=== PATIENT | female | born 1960 | race Caucasian/White ===

== ENCOUNTER 2020-07-17 09:45 | Outpatient (REF) | payer OTHER, SELFPAY ==
[2020-07-17 11:37] LABS: Anion Gap 14 (12-20); C Reactive Protein 0.19 mg/dL (< or = 0.50); Carbon Dioxide 24 mmol/L (22-29); Chloride 105 mmol/L (96-108); Potassium 4.4 mmol/l (3.3-5.1); Sodium 139 mmol/L (135-145)
[2020-07-17 11:41] LABS: Erythrocyte Sedimentation Rate 10 MM/HR (0-20)
[2020-07-17 12:28] LABS: T4 Thyroxine 8.3 ug/dL (4.5-12.0)
[2020-07-19 14:22] LABS: Anti Nuclear Antibody Screen NEGATIVE (NEGATIVE)
[2020-07-19 14:41] LABS: IgA 203 mg/dL (47-310); IgG 864 mg/dL (600-1640); IgM 68 mg/dL (50-300)
== END 2020-07-17 09:46 | disposition home or self-care (01) ==
LOC: HO.LAB 09:45
PROVIDERS: Visit Provider Psychiatry & Neurology Neurology
DX: M79.7 Fibromyalgia (principal)
CPT/HCPCS: 36415; 80051; 82550; 82784; 84436; 84443; 85652; 86038; 86039; 86140; 86334; 86618

== ENCOUNTER 2020-11-20 13:25 | Outpatient (REF) | payer OTHER, SELFPAY ==
[2020-11-20 14:33] LABS: MANUAL DIFF FLAG NO
[2020-11-20 14:37] LABS: Basophils Percent Auto 0.7 % (0-2); Eosinophils Absolute Auto 0.2 X10*3/uL (0.0-0.4); Eosinophils Percent Auto 5.1 % (0-4); Hematocrit 38.4 % (37-47); Hemoglobin 12.5 g/dl (12.0-16.0); Imm Gran Abs Auto 0.02 X10*3/uL (0.00-0.03); Imm Gran Pct Auto 0.5 % (0.0-0.4); Lymphocytes Absolute Auto 1.4 X10*3/uL (1.2-4.9); Lymphocytes Percent Auto 32.6 % (20-40); Mean Corpuscular HGB Conc 32.6 g/dl (31.0-35.0); Mean Corpuscular Hemoglobin 30.9 pg (27.0-33.0); Mean Corpuscular Volume 94.8 fL (80-98); Mean Platelet Volume 11.2 fL (9.4-12.3); Monocytes Absolute Auto 0.2 X10*3/uL (0.1-1.2); Monocytes Percent Auto 4.2 % (2-11); Neutrophils Absolute Auto 2.5 X10*3/uL (2.0-8.3); Neutrophils Percent Auto 56.9 % (45-73); Platelet Count 234 X10*3/uL (160-400); Red Blood Count 4.05 X10*6/uL (4.20-5.50); Red Cell Distribution Width 13.2 % (11.0-16.0); White Blood Count 4.3 X10*3/uL (4.8-10.8)
[2020-11-20 15:25] LABS: Erythrocyte Sedimentation Rate 8 MM/HR (0-20)
[2020-11-21 09:21] LABS: Lyme Abs Screen <0.90 index
== END 2020-11-20 13:26 | disposition home or self-care (01) ==
LOC: HO.LAB 13:25
PROVIDERS: Visit Provider Psychiatry & Neurology Neurology
DX: M79.7 Fibromyalgia (principal)
CPT/HCPCS: 36415; 85025; 85652; 86618

== ENCOUNTER 2021-06-24 12:06 | Outpatient (REF) | payer OTHER, SELFPAY ==
[2021-06-24 12:24] LABS: MANUAL DIFF FLAG NO
[2021-06-24 13:04] LABS: Eosinophils Absolute Auto 0.1 X10*3/uL (0.0-0.4); Eosinophils Percent Auto 3.1 % (0-4); Hematocrit 37.9 % (37-47); Hemoglobin 12.3 g/dl (12.0-16.0); Imm Gran Abs Auto 0.01 X10*3/uL (0.00-0.03); Imm Gran Pct Auto 0.3 % (0.0-0.4); Lymphocytes Percent Auto 25.3 % (20-40); Mean Corpuscular HGB Conc 32.5 g/dl (31.0-35.0); Mean Corpuscular Hemoglobin 30.3 pg (27.0-33.0); Mean Corpuscular Volume 93.3 fL (80-98); Mean Platelet Volume 11.1 fL (9.4-12.3); Monocytes Absolute Auto 0.2 X10*3/uL (0.1-1.2); Monocytes Percent Auto 5.9 % (2-11); Neutrophils Absolute Auto 2.5 X10*3/uL (2.0-8.3); Neutrophils Percent Auto 64.4 % (45-73); Platelet Count 216 X10*3/uL (160-400); Red Blood Count 4.06 X10*6/uL (4.20-5.50); Red Cell Distribution Width 12.9 % (11.0-16.0); White Blood Count 3.9 X10*3/uL (4.8-10.8)
[2021-06-24 13:20] LABS: C Reactive Protein 0.12 mg/dL (< or = 0.50)
[2021-06-24 13:41] LABS: Thyroid Stimulating Hormone 1.77 uIU/mL (0.32-4.0)
[2021-06-24 14:02] LABS: Erythrocyte Sedimentation Rate 7 MM/HR (0-20)
[2021-06-25 08:37] LABS: Lyme Abs Screen <0.90 index
== END 2021-06-24 12:07 | disposition home or self-care (01) ==
LOC: HO.LAB 12:06
PROVIDERS: Visit Provider Psychiatry & Neurology Neurology
DX: M79.7 Fibromyalgia (principal)
CPT/HCPCS: 36415; 82550; 84443; 85025; 85652; 86140; 86617; 86618

== ENCOUNTER 2021-09-05 13:13 | Outpatient (REF) | payer OTHER, SELFPAY ==
[2021-09-06 01:48] LABS: CT PCR NOT DETECTED (Not Detect.); NG PCR NOT DETECTED (Not Detect.)
[2021-09-11 08:51] LABS: HPV mRNA E6/E7 rflx Not Detected (Not Detected)
== END 2021-09-05 13:14 | disposition home or self-care (01) ==
LOC: HO.LAB 13:13
PROVIDERS: Visit Provider Obstetrics & Gynecology
DX: Z01.411 Encounter for gynecological examination (general) (routine) with abnormal findings (principal); Z11.51 Encounter for screening for human papillomavirus (HPV); R10.2 Pelvic and perineal pain
CPT/HCPCS: 81003; 87491; 87591; 87624; 88142

== ENCOUNTER 2021-09-18 12:49 | Outpatient (REF) | payer OTHER, SELFPAY ==
--- NOTE | ~2021-09-18 | US_ITS ---
EXAMINATION: US PELVIS CLINICAL INFORMATION: Lower abdominal and pelvic pain. Postmenopausal. COMPARISON: No similar priors. TECHNIQUE: Ultrasound of the pelvis is performed using both transabdominal and transvaginal transducers along. Transvaginal imaging is performed due to inadequate visualization transabdominally. FINDINGS: Uterus: The uterus is retroverted and retroflexed and measures 6.8 x 3.6 x 4.3 cm. The myometrium is heterogeneous and there is a 2.2 cm intramural fibroid in the left upper uterine body. The double wall endometrial thickness is 3 mm. Subcentimeter nabothian cysts overlie the pelvis. Adnexa: The right ovary is normal in morphology measuring 2.6 x 1.8 x 1.7 cm (volume of 4 mL). There is preserved flow to the right ovary on color. The left ovary was not visualized. No free fluid. US/US pelvic and transvaginal IMPRESSION: 2.2 cm uterine fibroid. The myometrium is heterogeneous which could be related with adenomyosis in the appropriate clinical context. If indicated, correlate with a pelvic MR. Normal sonographic appearance of the right ovary. The left ovary was not visualized.
== END 2021-09-18 12:50 | disposition home or self-care (01) ==
LOC: HO.HMGCX 12:49
PROVIDERS: Visit Provider Obstetrics & Gynecology
DX: R10.2 Pelvic and perineal pain (principal)
CPT/HCPCS: 76830; 76856

== ENCOUNTER → 2021-10-02 10:09 | Outpatient (BNVA) | payer OTHER, SELFPAY | PROVIDERS: Visit Provider Obstetrics & Gynecology ==

== ENCOUNTER → 2021-10-22 09:11 | Outpatient (BNVA) | payer OTHER, SELFPAY | PROVIDERS: Visit Provider Obstetrics & Gynecology ==

== ENCOUNTER 2022-01-03 15:23 | Outpatient (REF) | payer OTHER, SELFPAY ==
--- NOTE | ~2022-01-03 | US_ITS ---
EXAMINATION: US PELVIS CLINICAL INFORMATION: Pelvic and perineal pain COMPARISON: Previous pelvic ultrasound September 2021 TECHNIQUE: Ultrasound of the pelvis is performed using both transabdominal and transvaginal transducers along with Doppler. Transvaginal imaging is performed due to inadequate visualization transabdominally. FINDINGS: The uterus is retroverted and measures 6.7 x 3 x 4.3 cm in dimension. Uterine echotexture is heterogeneous. There are small cysts in the uterus near the endometrium. There are 2 focal uterine lesions measuring 1.8 x 1.1 x 1.2 cm in the anterior uterine body and 1.3 x 1.2 x 1.4 cm. Endometrial thickness is normal measuring 0.2 cm. There are nabothian cysts in the cervix. The ovaries are normal-appearing. The right ovary measures 1.6 x 1.1 x 0.9 cm and the left ovary measures 2.2 x 1.1 x 1.7 cm. There is a small amount of fluid in the pelvis. US/US pelvic and transvaginal IMPRESSION: Heterogeneous uterus questionable for adenomyomatosis. 2 focal uterine lesions questionable for small fibroids versus adenomyomas. Again this could be further evaluated with pelvic MRI clinically indicated. Normal appearing ovaries.
== END 2022-01-03 15:24 | disposition home or self-care (01) ==
LOC: HO.US 15:23
PROVIDERS: Visit Provider Obstetrics & Gynecology
DX: R10.2 Pelvic and perineal pain (principal); D21.9 Benign neoplasm of connective and other soft tissue, unspecified
CPT/HCPCS: 76830; 76856

== ENCOUNTER → 2022-01-21 11:51 | Outpatient (BNVA) | payer OTHER, SELFPAY | PROVIDERS: Visit Provider Obstetrics & Gynecology | DX: D21.9 Benign neoplasm of connective and other soft tissue, unspecified (principal) ==

== ENCOUNTER 2022-08-04 10:55 | Outpatient (REF) | payer BC, SELFPAY ==
--- NOTE | ~2022-08-04 | US_ITS ---
EXAMINATION: US PELVIS CLINICAL INFORMATION: Benign neoplasm connective tissue. COMPARISON: 01/03/2022, 09/18/2021 TECHNIQUE: Ultrasound of the pelvis is performed using both transabdominal and transvaginal transducers along with Doppler. Transvaginal imaging is performed due to inadequate visualization transabdominally. FINDINGS: The uterus is heterogeneous and measures 7.9 x 4.0 x 4.6 cm, volume 76.1 mL. Uterus is retropositioned. Endometrium is linear with thickness of 0.1 cm. No significant free fluid. Bilateral ovaries are unremarkable. Right ovary measures 2.3 x 1.1 x 1.4 cm, volume 1.9 mL. Left ovary measures 2.3 x 1.1 x 1.5 cm, volume 2.0 mL. Small nabothian cysts. A 1.2 x 1.1 x 1.1 cm fibroid is redemonstrated. Previously seen 1.4 cm fibroid not visualized today. Uterine heterogeneity raises the possibility of adenomyomatosis as previously noted. US/US pelvic and transvaginal IMPRESSION: 1. Heterogeneous uterus again raises the possibility of adenomyomatosis as previously noted. Single focal uterine lesion represent a small fibroid versus adenomyoma. Again MRI of the pelvis should be considered for further evaluation. 2. Bilateral ovaries are unremarkable.
== END 2022-08-04 10:56 | disposition home or self-care (01) ==
LOC: HO.US 10:55
PROVIDERS: Visit Provider Obstetrics & Gynecology
DX: D21.9 Benign neoplasm of connective and other soft tissue, unspecified (principal)
CPT/HCPCS: 76830; 76856

== ENCOUNTER 2022-11-20 12:02 | Outpatient (REF) | payer BC, SELFPAY ==
--- NOTE | ~2022-11-20 | MM_ITS ---
EXAMINATION: MM SCREENING DIGITAL BREAST TOMOSYNTHESIS, BILATERAL CLINICAL INFORMATION: Screening. Asymptomatic. The lifetime risk of breast cancer based on the Tyrer-Cuzick Model is 6%. COMPARISON: Outside 2-D mammography ([facility]): 08/13/2018, 12/05/2016, 09/27/2014 TECHNIQUE: Digital breast tomosynthesis is performed in both the craniocaudal and mediolateral oblique views along with computer-aided detection (CAD). Synthesized 2D images are generated from the tomosynthesis. FINDINGS: The breasts are heterogeneously dense, which may obscure small masses (ACR BI-RADS breast composition Category c). There are no significant masses, abnormal calcifications, or other abnormalities. Breast tissue composition borders on average fibroglandular. There are interval new bilateral punctate calcifications, likely benign. Patient will be recalled in order to obtain magnification views to fully characterize. Right breast has focal parenchymal asymmetry mid upper outer quadrant, likely chronic. Additional imaging will be requested to exclude developing density or architectural change. Left breast shows no significant mass or developing density or architectural abnormality. The bilateral axilla and skin contours are unremarkable. MM/MM tomosynthesis screening BI IMPRESSION: -New bilateral punctate calcifications. -Focal parenchymal asymmetry mid upper outer right breast, likely chronic. ASSESSMENT: BI-RADS 0: Incomplete - Need Additional Imaging Evaluation RECOMMENDATION: 1. Additional views: bilateral magnification CC; bilateral ML; 3D rolled right CC. 2. Targeted ultrasound if warranted after review of the additional views. 3. Radiology department staff will contact the patient for additional imaging. This patient's information was entered into a reminder system with a target due date for their next mammogram.
== END 2022-11-20 12:03 | disposition home or self-care (01) ==
LOC: HO.MAMMO 12:02
PROVIDERS: PCP Internal Medicine; Visit Provider Obstetrics & Gynecology
DX: Z12.31 Encounter for screening mammogram for malignant neoplasm of breast (principal)
CPT/HCPCS: 77063; 77067

== ENCOUNTER 2022-11-28 10:48 | Outpatient (REF) | payer BC, SELFPAY ==
--- NOTE | ~2022-11-28 | MM_ITS ---
EXAMINATION: MM DIAGNOSTIC DIGITAL BREAST TOMOSYNTHESIS, BILATERAL US BREAST, TARGETED, RIGHT CLINICAL INFORMATION: Density upper outer aspect of the right breast. Bilateral calcifications. The lifetime risk of breast cancer based on the Tyrer-Cuzick Model is 6.0%. COMPARISON: Mammography: 11/20/2022 and studies dating back to 09/27/2014. TECHNIQUE: Right digital breast tomosynthesis is performed in spot compression view and craniocaudal projection as well as rolled craniocaudal views for question mass. Synthesized 2D images are generated from the tomosynthesis. Spot magnification views of both breast in craniocaudal and 90 degree mediolateral views also performed for bilateral developing calcifications. FINDINGS: MAMMOGRAM: The breasts are heterogeneously dense, which may obscure small masses (ACR BI-RADS breast composition Category c). Compression and rolled views of the right breast appear to give an appearance similar to previous older studies of the density within the upper outer aspect of the right breast. There has been development of multiplicity and bilaterality of calcifications which appear punctate and majority rounded on craniocaudal view and with some of them change in configuration with the appearance of [id number]. ULTRASOUND: Targeted ultrasound evaluation to the upper outer aspect of the right breast demonstrates a few simple and complex cysts with structures having distal sound enhancement and no distal sound shadowing. MM/MM tomosynthesis diagnostic BI IMPRESSION: Density upper outer aspect of the right breast appears to have represented superimposition of fibroglandular tissue with similar appearance to prior studies on rolled views. Multiplicity and bilaterality of calcifications with some calcifications change in configuration between craniocaudal and 90 degree mediolateral views to suggest [id number]. Not all of the calcifications change configuration. ASSESSMENT: BI-RADS 3: Probably Benign RECOMMENDATION: Diagnostic mammography in 6 months. Recommend bilateral diagnostic mammogram in 6 months to include magnification views to ensure stability of above findings. This patient's information was entered into a reminder system with a target due date for their next mammogram. Results are discussed with the patient at time of visit.
== END 2022-11-28 10:49 | disposition home or self-care (01) ==
LOC: HO.MAMMO 10:48
PROVIDERS: Visit Provider Obstetrics & Gynecology
DX: R92.1 Mammographic calcification found on diagnostic imaging of breast (principal); R92.2 Inconclusive mammogram
CPT/HCPCS: 76642; 77062; 77066

== ENCOUNTER → 2023-02-04 12:27 | Outpatient (BNVA) | payer BC, SELFPAY | PROVIDERS: PCP Internal Medicine; Visit Provider Obstetrics & Gynecology ==

== ENCOUNTER 2023-06-03 12:11 | Outpatient (REF) | payer BC, SELFPAY ==
--- NOTE | ~2023-06-03 | MM_ITS ---
EXAMINATION: MM DIAGNOSTIC DIGITAL BREAST TOMOSYNTHESIS, BILATERAL CLINICAL INFORMATION: 6 month Follow-up bilateral calcifications; 6 month follow-up density upper outer aspect right breast. COMPARISON: Mammography: 11/28/2022 and studies dating back to 09/27/2014. Right breast ultrasound dated 11/28/2022, which showed no correlate to the right upper quadrant density. TECHNIQUE: Digital breast tomosynthesis is performed in both the craniocaudal and mediolateral oblique views along with computer-aided detection (CAD). Synthesized 2D images are generated from the tomosynthesis. In addition to standard views, 2-D spot magnification right CC, right MLO, left CC, and left MLO projections were obtained. FINDINGS: The breasts are heterogeneously dense, which may obscure small masses (ACR BI-RADS breast composition Category c). There are numerous groups of bilateral calcifications, with almost all groups demonstrating layering on 90 degree lateral projections, suggesting majority are most likely manufacturer's service representative of milk of calcium. These are probably benign findings, and 6 month follow-up recommended to ensure stability. The right upper slightly lateral asymmetry is also again less prominent on today's examination, and has the appearance of normal overlapping fibroglandular tissue, with a similar appearance now as compared to several priors. This finding pains probably benign. Breast parenchyma is very dense, and fibrocystic, with numerous circumscribed small oval masses throughout both breasts consistent with waxing and waning cysts. No dominant mass, no aggressive change in calcifications, and no areas of persistent architectural distortion in either breast. Overall, no significant interval change in the parenchymal pattern remains of either breast. MM/MM tomosynthesis diagnostic BI IMPRESSION: There are no significant changes from prior study. Probably benign bilateral extensive calcifications, likely related to milk of calcium. Six-month interval follow-up diagnostic magnification views recommended of both breasts. It is recommended the ML 90 degree magnification views remain in compression for 2 minutes to maximize layering. Probably benign focal asymmetry in the upper outer right breast, most likely related to normal overlapping dense fibroglandular tissues. This can be re-evaluated in 6 months at the time of bilateral screening. Stable extremely fibrocystic heterogeneously dense parenchyma in both breasts, with waxing and waning cysts. ASSESSMENT: BI-RADS BI-RADS 3 - Probably benign finding(s) - 6 month follow-up suggested RECOMMENDATION: 6 Month F/U Results were provided to the patient at time of visit by the technologist. This patient's information was entered into a reminder system with a target due date for their next mammogram.
== END 2023-06-03 12:12 | disposition home or self-care (01) ==
LOC: HO.MAMMO 12:11
PROVIDERS: PCP Internal Medicine; Visit Provider Obstetrics & Gynecology
DX: R92.1 Mammographic calcification found on diagnostic imaging of breast (principal)
CPT/HCPCS: 77062; 77066

== ENCOUNTER → 2023-06-03 14:30 | Outpatient (BNV) | payer BC, SELFPAY | PROVIDERS: PCP Internal Medicine; Visit Provider Radiology Diagnostic Radiology | DX: R92.1 Mammographic calcification found on diagnostic imaging of breast (principal) | CPT/HCPCS: 77062; 77066 ==

== ENCOUNTER 2023-12-07 10:52 | Outpatient (REF) | payer BC, SELFPAY ==
--- NOTE | ~2023-12-07 | MM_ITS ---
EXAMINATION: MM DIAGNOSTIC DIGITAL BREAST TOMOSYNTHESIS, BILATERAL CLINICAL INFORMATION: 6 month Follow-up bilateral calcifications. This will be for 1 year of stability. Bilateral screening. COMPARISON: Mammography: 11/28/2022 and studies dating back to 09/27/2014. Right breast ultrasound dated 11/28/2022, which showed no correlate to the right upper quadrant density. TECHNIQUE: Digital breast tomosynthesis is performed in both the craniocaudal and mediolateral oblique views along with computer-aided detection (CAD). Synthesized 2D images are generated from the tomosynthesis. In addition to standard views, 2-D spot magnification right CC, right MLO, left CC, and left MLO projections were obtained. FINDINGS: The breasts are heterogeneously dense, which may obscure small masses (ACR BI-RADS breast composition Category c). There are numerous groups of bilateral calcifications, with almost all groups demonstrating layering on 90 degree lateral projections, suggesting majority are most likely sales representative jewelry of milk of calcium. These remain probably benign findings, and 1 year follow-up recommended to ensure stability. The right upper slightly lateral asymmetry is also again less prominent on today's examination, and has the appearance of normal overlapping fibroglandular tissue, with a similar appearance now as compared to several priors. This finding is benign. No further follow-up. Breast parenchyma is very dense, and fibrocystic, with numerous circumscribed small oval masses throughout both breasts consistent with waxing and waning cysts. No dominant mass, no aggressive change in calcifications, and no areas of persistent architectural distortion in either breast. Overall, no significant interval change in the parenchymal pattern remains of either breast. MM/MM tomosynthesis diagnostic BI IMPRESSION: There are no significant changes from prior study. Probably benign bilateral extensive calcifications, likely related to milk of calcium. 1 year interval follow-up diagnostic magnification views recommended of both breasts, to include standard magnification views when the patient is due for bilateral screening. It is recommended the ML 90 degree magnification views remain in compression for 2 minutes to maximize layering. Stable extremely fibrocystic heterogeneously dense parenchyma in both breasts, with waxing and waning cysts. ASSESSMENT: BI-RADS BI-RADS 3 - Probably benign finding(s) - 12 month follow-up suggested RECOMMENDATION: 12 month diagnostic follow up Results were provided to the patient at time of visit by the technologist. This patient's information was entered into a reminder system with a target due date for their next mammogram.
== END 2023-12-07 10:53 | disposition home or self-care (01) ==
LOC: HO.MAMMO 10:52
PROVIDERS: PCP Internal Medicine; Visit Provider Obstetrics & Gynecology
DX: R92.1 Mammographic calcification found on diagnostic imaging of breast (principal); N64.89 Other specified disorders of breast
CPT/HCPCS: 77062; 77066

== ENCOUNTER → 2023-12-07 11:00 | Outpatient (BNV) | payer BC, SELFPAY | PROVIDERS: PCP Internal Medicine; Visit Provider Radiology Diagnostic Radiology | DX: R92.1 Mammographic calcification found on diagnostic imaging of breast (principal) | CPT/HCPCS: 77062; 77066 ==

== ENCOUNTER 2024-02-09 10:17 | Outpatient (AMB) | payer BC, SELFPAY ==
--- NOTE | 2024-02-09 10:38 | A.OFFVIS_ITS ---
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 No complaints. Last Pap/HPV was negative in 09/28 Last Mammogram was BI-RADS 3 in 12/29, the recommendation was to repeat in 1 year Last Colonoscopy was around 7 years ago, the recommendation was to repeat in 10 years according to the patient, no records available COUNTS INCLUDE 234 BEDS AT THE [facility] Medical History Fibromyalgia Peripheral neuropathy Thyroid disease Surgical History Hx of tonsillectomy History of tubal ligation Family History Father Heart disease Brother HTN (hypertension) Sister Diabetes Liver cancer Maternal Uncle No problems noted. Mother Throat cancer Social History Household Members: Spouse Household Members Other:: daughter Housing: House Alcohol intake: current Alcohol intake frequency: holidays/special occasions only Patient Tobacco Use Status: Former Tobacco user Tobacco use type: Cigarette Current occupational status: retired Sexually active: Yes Sexual orientation: Straight/Heterosexual Gender identity: Female Female Reproductive History Menstrual Age of Menarche: 16 Total pregnancies: 3 Full term: 3 Number of Living Children: 3 Date of last pap smear: 09/09/21 Date of Mammogram: 12/07/23 Review of Systems Const All systems reviewed & are unremarkable except as noted in HPI and below Card Reports as per HPI Resp Reports as per HPI GI Reports as per HPI and Reports no additional complaints Reports as per HPI Physical Exam Vital Signs: BMI result Body Mass Index 27.1 Const General: cooperative, healthy appearing and comfortable Chest Chest palpation & inspection: normal inspection of the chest and normal palpation of entire chest wall Breast/axilla inspection: normal inspection of the breasts and normal inspection of the axillae Breast/axilla palpation: normal palpation of the breasts, normal palpation of the axillae and no axillary lymphadenopathy Resp Effort & Inspection: normal respiratory effort Auscultation: clear to auscultation bilaterally Percussion: percussion normal Cardio Palpation: normal PMI Rate: regular rate Rhythm: regular rhythm Heart sounds: no murmurs and no rubs Peripheral pulses: Peripheral pulses 2+ throughout GI Inspection: Yes normal to inspection Palpation (GI): Soft to palpation, nontender, no guarding, not rigid and No hepatosplenomegaly present Percussion: Yes normal to percussion Auscultation: normal bowel sounds Rectal Exam - Female: deferred General: Yes bladder normal to palpation External Female Exam: No lesion Speculum Exam - Vagina: normal appearance of the vagina, normal palpation, normal vaginal discharge and not erythematous Speculum Exam - Cervix: normal appearance of the cervix and normal palpation Bimanual exam- vagina & uterus: normal bimanual exam, normal palpation, uterine size normal, bladder normal to palpation, consistency normal and normal palpation Bimanual Exam- Adnexa, other: normal adnexae, no masses and no tenderness Assessment & Plan Assessment & Plan (1) Well woman exam: Code(s): Z01.419 - Encounter for gynecological examination (general) (routine) without abnormal findings Category: Medical Plan: Co testing not indicated this year. Counseled the patient about the recommended dietary allowance of 1200 mg of Calcium & 600 IU of vitamin D. Instructions given the patient to schedule next screening Mammogram in 12/30. The patient was instructed to perform monthly self-breast exams and schedule an nual exam in a year. All questions answered and the patient verbalized understanding. Coding Level of Care Code Est Pt Prev Care 40-64y(26903) Diagnoses Well woman exam Z01.419
[2024-02-09 10:41] VITALS: BP 110/68; BMI 27.1
== END 2024-02-09 11:01 | disposition home or self-care (01) ==
PROVIDERS: Visit Provider Obstetrics & Gynecology
DX: Z01.419 Encounter for gynecological examination (general) (routine) without abnormal findings (principal)
CPT/HCPCS: 99396

== ENCOUNTER → 2024-02-09 10:17 | Outpatient (BNVA) | payer BC, SELFPAY | PROVIDERS: Visit Provider Obstetrics & Gynecology ==

== ENCOUNTER 2024-12-08 10:54 | Outpatient (REF) | payer MEDICARE, SELFPAY ==
--- NOTE | ~2024-12-08 | MM_ITS ---
EXAMINATION: MM DIAGNOSTIC DIGITAL BREAST TOMOSYNTHESIS, BILATERAL CLINICAL INFORMATION: Two-year follow-up for bilateral calcifications and right asymmetry. COMPARISON: Mammography: Comparison is made with relevant prior exams. TECHNIQUE: Digital breast mammography with tomosynthesis is performed in both the craniocaudal and mediolateral oblique views along with computer-aided detection (CAD). FINDINGS: The breasts are heterogeneously dense, which may obscure small masses (ACR BI-RADS breast composition Category c). Bilateral scattered calcifications in the retroareolar regions some of which demonstrate layering on MLO magnification views indicating milk of calcium are not significantly changed on prior magnification views dating back for 2 years and therefore benign. Asymmetry in the lateral right breast on CC view is not significantly changed on prior mammogram for 2 years and therefore benign. Prior ultrasound demonstrated simple cysts. There are no significant masses, abnormal calcifications, or other abnormalities. Results are provided to the patient at time of visit by the technologist. MM/MM tomosynthesis diagnostic BI IMPRESSION: No mammographic evidence of malignancy. ASSESSMENT: BI-RADS BI-RADS 2 - Benign Findings RECOMMENDATION: 1 year F/U This patient's information was entered into a reminder system with a target due date for their next mammogram. Electronically signed by: Crystal Trevino DO 12/08/2024 12:05 PM EDT
--- OUTSIDE RECORDS SUMMARY | 2024-12-08 12:08 | XMS_ITS | Clinical Summary ---
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 Name Role Phone Unavailable Primary Care Provider Unavailabl e Social History Tobacco Use Types Packs/Day Years Used Date Smoking Tobacco: Never Assessed Sex and Gender Information Value Date Recorded Sex Assigned at Not on file Gender Identity Not on file Sexual Orientation Not on file Plan of Treatment Health Maintenance Due Date Last Done Comments Hepatitis C Virus Screening 1961 HIV Screening 1974 DTaP/Tdap/Td Vaccines (1 - Tdap) 01/02/1980 Pneumococcal Vaccines 50+ (1 of 1 - PCV) 2011 Zoster (Shingles) Vaccine (1 of 2) 2011 COVID-19 Vaccine ( - 2023-2 5 season) 2024 RSV Vaccine 60 years and old er and Patients (1 - 1-dose 75+ series) 01/02/2036 Hepatitis B Vaccines Aged Out No long er eligible based on patient's age to complete this topic Pneumococcal Vaccine: Pediat marcelino (0-5 Years) and At-Risk Patients (6 to 49 Years) Aged Out No longer eligible b ased on patient's age to complete this topic
--- OUTSIDE RECORDS SUMMARY | 2024-12-08 12:08 | XMS_ITS | Data Portability ---
Author Organization [facility], [facility], Patient Home Address [address] [place] [phone] Care Team Providers Care Safety Instruction Police Officer Name Role Phone LORETA ANGULO Primary Care Provider [phone] LORETA ANGULO Referring Provider [phone] Assessment No assessment recorded. Plan of Treatment Reminders Order Date Submit Date Provider Last Modified By Organization Details Last Modified Time Details Appointments None recorded. Lab drug screen, urine 2021 022 [email or web address] Main Office, [address] [place] [address], [id number], 19:03:35 Referral None recorded. Procedures None recorded. Surgeries None recorded. Imaging None recorded. 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 Not available Not available Not available jail goal o f Weight 130 lbs Not available Not available Not available decrease painincrease activitiesimprove quality of lifeweight reduction [email or web address] Not available 02/20/2022 19:02:37 03/20/2022 [id number] jail goal o f Pain Scale Not available Not available Not available 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 Weight 130 lbs Not available Not available Not available decrease painincrease activitiesimprove quality of lifeweight reduction [email or web address] Not available 03/20/2022 12:05:01 04/24/2022 [id number] 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 Not available Not available Not available 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 Weight 130 lbs Not available Not available Not available decrease painincrease activitiesimprove quality of lifeweight reduction dmousad Not available 04/24/2022 16:51:13 Patient Instructions Encounter Date Encounter Id Patient Instructions Last Modified By Organization Details Last Modified Time 02/20/2022 [id number] given [email or web address] Not available 02/20 19:02:43 Given [email or web address] Not available 2021 19:02:48 03/20/2022 [id number] Given dmousad Not available 03/20 12:05:07 Given [email or web address] Not available 2021 12:05:12 04/24/2022 [id number] Given dmousad Not available 04/24 16:51:22 Given [email or web address] Not available 2021 16:51:26 Reason for Referral None Reported. Results Created Date Observation Date Name Description Value Unit Range Abnormal Flag Note LastModifiedBy Organization Detail LastModifiedTime 02/21/2002/20/2022 drug scree n, urine Amphetamines : negati ve Not Available Main Office [address], [address], 02/20/2022 14:28:34 02/21/20 22 02/20/2022 drug scree n, urine Cannabinoids :THC negati ve Not Available Main Office [address] [address], [place], [address], 02/20/2022 14:28:34 02/21/20 22 02/20/2022 drug scree n, urine Cocaine: negati ve Not Available Main Office [address] [address], [place], [address], 02/20/2022 14:28:34 02/21/20 22 02/20/2022 drug scree n, urine Methadone: negati ve Not Available Main Office [address] [address], [place], [address], 02/20/2022 14:28:34 02/21/20 22 02/20/2022 drug scree n, urine Opiates: negati ve Not Available Main Office [address] [address], [place], [address], 02/20/2022 14:28:34 02/21/20 22 02/20/2022 drug scree n, urine Oxycodone: negati ve Not Available Main Office [address] [address], [place], [address], 02/20/2022 14:28:34 02/21/20 22 02/20/2022 drug scree n, urine Phenocyclidi ne: negati ve Not Available Main Office [address] [address], [place], [address], 02/20/2022 14:28:34 02/21/20 22 02/20/2022 drug scree n, urine Barbiturates : negati ve Not Available Main Office [address] [place] [address], [place], [address], 02/20/2022 14:28:34 02/21/20 22 02/20/2022 drug scree n, urine Benzodiazepi wendi: negati ve Not Available Main Office [address] [address], [place], [address], 02/20/2022 14:28:34 02/21/20 22 02/20/2022 drug scree n, urine Buprenorphin e negati ve Not Available Main Office [address] [address], [place], [address], 02/20/2022 14:28:34 02/21/20 22 02/20/2022 drug scree n, urine Methamphetam ine negati ve Not Available Main Office 116 [facility], [place], [address], 02/20/2022 14:28:34 02/21/20 22 02/20/2022 drug scree n, urine MDMA negati ve Not Available Main Office 116 [facility], [place], [address], 02/20/2022 14:28:34 Result Notes None recorded. Problems Name Problem SNOMED Code Status Onset Date Resolution Date Notes Provider Name and Address Organization Details Recorded Time Chronic pain 36679068 Active 2021 Wilmig potts null, [place] [facility] 2 09:08:20 Pain in face 72454418 Active 2021 Derikcg potts [place], [place] - [facility], [facility] 2 09:08:28 Fibromyalgia 485779135 Active 2021 Wilmig potts null, [place] - [facility], [facility] 2 09:08:39 Foot pain 93253243 Active 2021 Wilmig potts [place], [place] [facility] 2 09:08:46 Lyme disease 66997594 Active 2021 Wilmig potts null, [place] - [place] [facility], [facility] 2 09:08:53 Metatarsalgia 35665433 Active 2021 Wilmig potts [place] - [facility], [facility] 2 09:09:07 Myalgia/myosit is - multiple 139932952 Active 2021 Wilmig potts [place] - [facility], [facility] 2 09:10:21 Neuropathy 582437278 Active 2021 Wilmig potts [place] [facility] 2 09:10:32 Shoulder pain 56947965 Active 2021 Juve castro [facility], [facility] 2 09:10:45 Problem Notes None recorded. Procedures Surgical History Date Name Laterality Status Provider Name and Address Organization Details Recorded Time 05/22/20 Trigger Point Injections Under Ultra Sound Guidance. completed Dakota Damico MD [address] [place] [address],[address], [address], [facility], [facility] 05/22/2022 17:16:49 04/24/20 Trigger Point Injections Under Ultra Sound Guidance. completed Dakota Damico MD [address] [place] [address],[address] [address], [place], [address], [facility], [facility] 04/24/2022 16:53:36 04/03/20 Trigger Point Injections Under Ultra Sound Guidance. completed Dakota Damico MD [address] [place] [address],[address] [address], [place], [address], [facility], [facility] 04/03/2022 12:46:46 03/20/20 Trigger Point Injections Under Ultra Sound Guidance. completed Dakota Damico MD [address] [place] [address],[address] [address], [place], [address], [facility], [facility] 03/20/2022 12:08:08 ligation of fallopian tube completed Scot de [facility], [facility] 02/20/2022 14:21:35 tonsillectomy completed Scot de [facility], [facility] 02/20/2022 14:21:42 Imaging Results None recorded. Procedure Notes None recorded. Medical Equipment None Reported. Allergies Allergen ID Allergen Name Allergen Category Reaction Reaction Severity Criticality Documentation Date Start Date Code Code System Note Provider Name and Address Organization Details Recorded Time 4242 Product containin g penicilli n (product) medicatio n Not available Not available Not available 01/30/2022 85193 8001 SNOMED Juve castro [facility], [facility] 2 09:17:25 Medications Name Sig Start Date Stop Date Status Note LastModified by Organization Details LastModified Time methocarbam ol 500 mg tablet TAKE 1 TABLET BY MOUTH TWICE DAILY DIRECTED active Not Available Not Available No t Available minocycline 100 mg capsule Take 1 capsule every 12 hours by oral route. 02/20 completed Not Available Not Available Not Available prednisone 20 mg tablet TAKE 3 TABS BY MOUTH X 3 DAYS, TAKE 2 TABS X 3 DAYS, THEN TAKE 1 TAB X 3 DAYS. active Not Available Not Available No t Available nystatin 500,000 unit tablet TAKE 2 TABLETS BY MOUTH 3 TIMES A DAY WITH MEALS 02/20 completed Not Available Not Available Not Available levothyroxi ne 75 mcg tablet TAKE 1 TABLET BY MOUTH EVERY DAY active Not Available Not Available No t Available methocarbam ol 750 mg tablet TAKE 1 TABLET BY MOUTH EVERY DAY IN THE EVENING active Not Available Not Available No t Available gabapentin 800 mg tablet TAKE 1 TABLET BY MOUTH TWICE A DAY AND TAKE 2 TABLETS AT BEDTIME DIRECTED. active Not Available Not Available No t Available diclofenac sodium 75 mg tablet,mary yed release Take 1 tablet twice a day by oral route. 02/20 completed Not Available Not Available Not Available hydroxychlo roquine 200 mg tablet TAKE 1 TABLET BY MOUTH TWICE DAILY 02/20 completed Not Available Not Available Not Available doxycycline hyclate 100 mg tablet TAKE 1 TABLET BY MOUTH TWICE A DAY WITH MEALS 02/20 completed Not Available Not Available Not Available nystatin 500,000 unit capsule Take by oral route. 02/20 completed Not Available Not Available Not Available azithromyci n 500 mg tablet TAKE 1 TABLET BY MOUTH EVERY DAY 02/20 completed Not Available Not Available Not Available tinidazole 500 mg tablet TAKE 1 TABLET BY MOUTH TWICE A DAY WITH FOOD FOR 2 CONSECUTI VE DAYS OF THE WEEK 02/20 completed Not Available Not Available Not Available levothyroxi ne 02/20 completed Not Available Not Available Not Available ibuprofen (bulk) active Not Available Not Available Not Available tinidazole 02/20 completed Not Available Not Available Not Available ProAir HFA 90 mcg/actuati on aerosol inhaler Inhale 2 puffs every 6 hours by inhalatio n route. active Not Available Not Available No t Available Vitals Date Recorded Body height Body temperature Provider N caty and Address Organization Details Last Updated DateTime 04/24/2022 167.64 cm 98 [degF] Scot LewisBenjamín [facility], [facility] 04/24/2022 11:16:32 Date Recorded Body mass index (BMI) Body weight Heart rate Oxygen saturation Oxygen saturation in Arterial blood by Pulse oximetry Systolic blood pressure Diastolic blood pressure Provider Name and Address Organization Details Last Updated DateTime 2 25.7 kg/m2 83224.9 1 g 62 /min 97 % 97 % 138 mm[Hg] 80 mm[Hg] Ermelinda Dillard [facility], [facility] 2 11:19:39 Date Recorded Body height Body temperature Provider N caty and Address Organization Details Last Updated DateTime 05/22/2022 167.64 cm 98 [degF] Ermelinda Dillard [facility], [facility] 05/22/2022 11:13:21 Date Recorded Body temperature Body weight Body mass index (BMI) Body height Heart rate Respiratory rate Heart rate Oxygen saturation Oxygen saturation in Arterial blood by Pulse oximetry Systolic blood pressure Diastolic blood pressure Provider Name and Address Organization Details Last Updated DateTime 2 97.5 [degF] 37099.7 g 27.4 kg/m2 167.64 cm 73 /min 18 /min 73 /min 98 % 98 % 119 mm[Hg] 76 mm[Hg] Scot Chris woods [facility], [facility] 2 14:25:38 Date Recorded Body height Body temperature Provider N caty and Address Organization Details Last Updated DateTime 03/20/2022 167.64 cm 97.3 [degF] Scot Montrell [facility], [facility] 03/20/2022 11:30:49 Date Recorded Body height Body temperature Provider N caty and Address Organization Details Last Updated DateTime 04/03/2022 167.64 cm 98.1 [degF] Scot Stock [facility], [facility] 04/03/2022 11:29:17 Social History Question Answer Notes LastModified by Organizat ion Details LastModified Time Tobacco Smoking Status Never Smoker Juve castro [facility], [facility] 01/30/2022 09:19:21 What Is Your Level Of Alcohol Consumption? Occasional Information not available 02/20/2022 Are You Blind Or Do You Have Difficulty Seeing? No Information not available 02/20/2022 What Is Your Level Of Caffeine Consumption? Occasional Information not available 02/20/2022 In The 14 Days Before Symptom Onset, Have You Had Close Contact With A Laboratory-confir med COVID-19 While That Case Was Ill? No Information not available 02/20/2022 In The 14 Days Before Symptom Onset, Have You Had Close Contact With A Person Who Is Under Investigation For COVID-19 While That Person Was Ill? No Information not available 02/20/2022 Have You Been To An Area Known To Be High Risk For COVID-19? No Information not available 02/20/2022 Are You Deaf Or Do You Have Serious Difficulty Hearing? No Information not available 02/20/2022 What Type Of Diet Are You Following? REGULAR Information not available 01/30/2022 Which Of Your Hands Is Dominant? Right Information not available 02/20/2022 Do You Use Any Illicit Or Recreational Drugs? No Information not available 01/30/2022 Do You Or Have You Ever Used Any Other Forms Of Tobacco Or Nicotine? No Information not available 02/20/2022 Sex: Unknown Functional Status Question Answer Note LastModified by Organizat ion Details LastModified Time Do you have difficulty walking or climbing stairs? Yes Information not available 02/20/2022 Do you have difficulty doing errands alone? No Information not available 02/20/2022 Do you have difficulty dressing or bathing? Yes Information not available 02/20/2022 What is your exercise level? Occasional Information not available 01/30/2022 Mental Status Question Answer Note LastModified by Organization D etails LastModified Time Do you have difficulty concentrating, remembering or making decisions? No Information no t available 02/20/2022 Family History Relationship Description Onset Age of this Age Resolved Age Notes LastModified by Organization Details LastModified Time Mother Multiple malignancy Not available 01/30 09:21:13 Mother Hypertensive disorder [email or web address] Not available 14:20:41 Sister Diabetes mellitus [email or web address] Not available 14:20:52 Medical History Condition Response Coronary Artery Disease N Gout N Head Trauma/Injury N Hernia N Thyroid Problems Y Depression N COPD N Anemia Y Heart Attack (SC) N Ulcers N Anxiety Disorder N Diabetes N Bleeding Disorder N Arthritis Y Tuberculosis N AIDS/HIV N Acid Reflux (GERD) N Cancer N Stroke N Asthma Y Substance Abuse N Back Injury N High Cholesterol Y Hepatitis N Liver Disease N Heart Disease N Fibromyalgia Y Headaches N Hypertension N Osteoporosis N Kidney Disease N Gynecological HistoryNo gynecological history recorded. Obstetrics History GPAL:G 0 P 0 0 0 0 Past Encounters Encounter ID Performer Location Encounter Start Date Encounter Closed Date Diagnosis/Indication Diagnosis SNOMED-CT Code Diagnosis ICD10 Code Diagnosis Note [id number] Dakota Damico MD Main Office [address] [address] 02/20/2022 13:54:35 02/20/2022 19:04:20 Long-term current use of opiate analgesic drug 7822159639 77595 Z79.891 Chronic low back pain 27 0417818 M54.51 HEP. Fibromyalgia 400266404 M 79.7 Continue gabapentin aquatic tX. Lumbosacra l spondylosis without myelopathy 78625735 M47.817 RFR in the future. Myalgia/my ositis - multiple 838441619 M79.12 TPI in the future. Lumbar radiculopathy 128 248535 M54.16 Rt L5-S1 ILe after she bring her MRI. [id number] Dakota Damico MD Main Office 116 [facility],[address] [address] 03/20/2022 11:28:42 03/20/2022 12:09:01 Spasm of back muscles 972869646 M62.830 Chronic low back pain 27 5053167 M54.51 HEP. Fibromyalgia 398674369 M 79.7 Continue gabapentin aquatic tX. Lumbosacra l spondylosis without myelopathy 97182189 M47.817 RFR in the future. Lumbar radiculopathy 128 726990 M54.16 Rt L5-S1 ILe after she bring her MRI. Myalgia/my ositis - multiple 226442179 M79.12 TPI [id number] Dakota Damico MD Main Office [address] [place] [address] 04/03/2022 11:27:20 04/03/2022 12:48:08 Myalgia/myositis - multiple 970361971 M79.12 TPI [id number] Dakota Damico MD Main Office [address] [place] [address] 04/24/2022 11:14:27 04/24/2022 16:55:34 Spasm of back muscles 081332071 M62.830 Chronic low back pain 27 3485638 M54.51 HEP. Fibromyalgia 812639556 M 79.7 Continue gabapentin aquatic tX. Lumbar radiculopathy 128 729945 M54.16 Rt L5-S1 ILe after she bring her MRI. Lumbosacra l spondylosis without myelopathy 63148848 M47.817 RFR in the future. Myalgia/my ositis - multiple 803337907 M79.12 TPI [id number] Dakota Damico MD Main Office [address] [place] [address] 05/22/2022 11:11:29 05/22/2022 17:19:01 Myalgia/myositis - multiple 574876846 M79.12 TPI Health Concerns Section Related Observation LastModified by Organization Detai ls LastModified Time None Recorded Concern Status LastModified by Organization Details LastModified Time None Recorded Advance Directives Directive None Recorded Payers Encounter Date Sequence Insurance Name Policy Number Policy Tolentino Covered Member ID Tolentino Member ID Guarantor Name 02/20/2022 1 [employer] (PPO) [id number] Ravinder Gorman [id number] Tamela Gorman 03/20/2022 1 [employer] (PPO) [id number] Ravinder Gorman [id number] Tamela Gorman 04/03/2022 1 [employer] (PPO) [id number] Ravinder Gorman [id number] Tamela Gorman 04/24/2022 1 [facility] [employer] [facility] (PPO) [id number] Ravinder Gorman [id number] Tamela Gorman 05/22/2022 1 [facility] [employer] [facility] (PPO) [id number] Ravinder Gorman [id number] Tamela Gorman Notes Date Note Type Note Provider Name and Address Organization Details Recorded Time 2 text/html FibromyalgiaReported bypatient.Frequencyconsta nt Timing:no change during the day Location:diffuse Severity:moderate;pain level 7/10 Pain in Joints or Muscles:pain of joints or muscles Alleviating factors:rest Aggravating factors:cold;emotional stress;exercise Associated Symptoms:fatigue;irritabl e bowel syndrome (IBS);sleep disorders;chronic headaches;morning stiffness;muscle spasms;numbness/tingling in the extremities;lightheadedne ss 62 years old female with a history of generalized pain for years, was diagnosed for fibromyalgia, Lyme disease, history of chronic low back pain. She presented today with generalized body pain and lower back pain, the pain is deep aching and constant, she rated her pain as 6-7/10 VAS, the pain associated with tingling and numbness in her lower extremity right more than the left. She is taking gabapentin 800 mg 4 times a day. She tried Lyrica [place] in the past without help and with side effect. Screening UT done today was negative for all drugs tested. Dakota Damico MD [address] [place] [address],[address], [place], [address], [facility], [facility] 02/20/2022 19:03:38 2 text/html FibromyalgiaReported bypatient.Frequencyconsta nt Timing:no change during the day Location:diffuse Severity:moderate;pain level 6/10 Pain in Joints or Muscles:pain of joints or muscles Alleviating factors:rest Aggravating factors:cold;emotional stress;exercise Associated Symptoms:fatigue;irritabl e bowel syndrome (IBS);sleep disorders;chronic headaches;morning stiffness;muscle spasms;numbness/tingling in the extremities;lightheadedne ss 62 years old female with a history of generalized pain for years, was diagnosed for fibromyalgia, Lyme disease, history of chronic low back pain. She presented today with generalized body pain and lower back pain, the pain is deep aching and constant, she rated her pain as 6/10 VAS, the pain associated with tingling and numbness in her lower extremity right more than the left. She is taking gabapentin 800 mg 4 times a day. She tried Lyrica in the past without help and with side effect. She is on gabapentin 800 mg, 1, 1, 2 ( 4/day) Dakota Damico MD [address] [place] [address],[address], [address], [facility], [facility] 03/20/2022 12:08:31 2 text/html FibromyalgiaReported bypatient.Frequencyconsta nt Timing:no change during the day Location:diffuse Severity:moderate;pain level 6/10 Pain in Joints or Muscles:pain of joints or muscles Alleviating factors:rest Aggravating factors:cold;emotional stress;exercise Associated Symptoms:fatigue;irritabl e bowel syndrome (IBS);sleep disorders;chronic headaches;morning stiffness;muscle spasms;numbness/tingling in the extremities;lightheadedne ss 62 years old female with a history of generalized pain for years, was diagnosed for fibromyalgia, Lyme disease, history of chronic low back pain. She presented today with generalized body pain and lower back pain, the pain is deep aching and constant, she rated her pain as 5-7/10 VAS, the pain associated with tingling and numbness in her lower extremity right more than the left. She is taking gabapentin 800 mg 4 times a day. She is on gabapentin 800 mg, 1, 1, 2 ( 4/day) Trigger point injection to the upper thoracic paraspinal muscle, and bilateral shoulder and cervical paraspinal muscle done in and 04/03/2022 with 50% left pain of the muscle tightness, the patient stated she has better range of motion and less muscle tightness and she laughs to repeat it. Dakota Damico MD [address] [facility],[address] [address], [place], [address], [facility], [facility] 04/24/2022 16:55:06 OBGyn Episode No OBEpisode recorded.
== END 2024-12-08 10:55 | disposition home or self-care (01) ==
LOC: HO.MAMMO 10:54
PROVIDERS: PCP Internal Medicine; Visit Provider Obstetrics & Gynecology
DX: R92.1 Mammographic calcification found on diagnostic imaging of breast (principal)
CPT/HCPCS: 77062; 77066

== ENCOUNTER → 2024-12-08 11:00 | Outpatient (BNV) | payer MEDICARE, SELFPAY | PROVIDERS: PCP Internal Medicine; Visit Provider Internal Medicine | DX: R92.1 Mammographic calcification found on diagnostic imaging of breast (principal) | CPT/HCPCS: 77066; G0279 ==